=== PATIENT | female | born 1995 | race Two or more races ===

== ENCOUNTER 2023-10-07 06:04 | Emergency (ER) | payer OTHER ==
[~2023-10-07] VITALS: Ht 165.1 cm; Wt 79.4 kg
[2023-10-07 09:21] LABS: HEMATOCRIT 40.2 % (36.0-45.00); HEMOGLOBIN 13.7 g/dL (12.0-15.00); MEAN CELL VOLUME 85.2 fL (80.00-100.00); MEAN CORPUSCULAR HEMOGLOBIN 29.1 pg (27.00-32.0); MEAN CORPUSCULAR HGB CONC 34.2 g/dl (32.0-36.0); PLATELET COUNT 310 K/uL (150-450); RED BLOOD COUNT 4.72 M/uL (4.00-6.00); RED CELL DISTRIBUTION WIDTH 14.5 % (11.5-14.5)
[2023-10-07 09:49] LABS: ANION GAP 10 (10.0-20.0); BLOOD UREA NITROGEN 13 mg/dL (7-18); BUN CREA RATIO 18 (7.0-25.0); CARBON DIOXIDE 28 mEq/L (21-32); CHLORIDE 106 mmol/L (98-107); CREATININE SERUM 0.72 mg/dL (0.55-1.02); GFR 97.91; GLUCOSE FASTING 107 mg/dL (65-100); LIPASE 42 U/L (13-75); OSMOLALITY SERUM 280 MOSM/KG (275-295); POTASSIUM 4.11 mEq/L (3.5-5.1); SODIUM 140 mmol/L (136-145)
[2023-10-07 10:23] LABS: HCG QUANTITATIVE < 1 mUI/mL (1-3)
[2023-10-07 11:20] LABS: URINE APPEARANCE Clear; URINE BILIRRUBIN Negative (NEGATIVE); URINE BLOOD Negative; URINE COLOR Yellow; URINE GLUCOSE Negative (NEGATIVE); URINE LEUKOCYTE Negative; URINE NITRATE Negative; URINE PROTEIN Negative (NEGATIVE); URINE UROBILINOGEN 0.2 E.U./dl
[2023-10-07 11:24] LABS: URINE BACTERIA 147.3 uL (0.0-1933); URINE EPITHELIAL CELLS 3.5 uL (0.0-38.8); URINE RBC 5.7 uL (0.0-20.8); URINE WBC 3.7 uL (0.0-23.2)
[2023-10-07] MEDS ORDERED: DICLOFENAC POTA50 MG PO (12:02)
[2023-10-07] MEDS ORDERED: ZOFRAN8 MG PO (12:02)
[2023-10-07] MEDS ORDERED: PEPCID AC20 MG PO (12:02)
== END 2023-10-07 14:28 | disposition home or self-care (01) ==
LOC: ER 06:05
PROVIDERS: General Practice
DX: K52.9 Noninfective gastroenteritis and colitis, unspecified (principal); M54.89 Other dorsalgia